=== PATIENT | female | born 1960 ===

== ENCOUNTER 2018-05-06 18:27 | Emergency (ER) | payer BC ==
--- NOTE | 2018-05-06 19:08 | UC ---
Skin Complaint HPI - HPI Summary HPI Summary: 57-year-old woman comes in with a chief complaint of rash on the left side of the face. This started 2 days ago. It itches and is mildly painful. There are some tingling on the left side of the lips. No fevers or chills no ear pain patient feels well otherwise. No known allergens. - History of Current Complaint Chief Complaint: UCSkin Time Seen by Provider: 05/06/18 18:55 Stated Complaint: RASH Hx Last Menstrual Period: n/a Pain Intensity: 0 - Allergy/Home Medications Allergies/Adverse Reactions: Allergies Allergy/AdvReac Type Severity Reaction Status Date / Time No Known Allergies Allergy Verified 05/06/18 18:51 Home Medications: Home Medications Fexofenadine (NF) [Yesenia 180 (NF)] 180 mg PO DAILY 05/06/18 [History Confirmed 05/06/18] Review of Systems Constitutional: Negative Skin: Rash Eyes: Negative ENT: Negative Respiratory: Negative Cardiovascular: Negative Gastrointestinal: Negative Motor: Negative Neurovascular: Negative Musculoskeletal: Negative Neurological: Negative Psychological: Negative Is Patient Immunocompromised?: No All Other Systems Reviewed And Are Negative: Yes PMH/Surg Hx/FS Hx/Imm Hx Previously Healthy: Yes - Surgical History Surgical History: Yes Surgery Procedure, Year, and Place: lumpectomy. right achilles repair. T&A - Family History Known Family History: Positive: Unknown - Social History Alcohol Use: Occasionally Substance Use Type: None Smoking Status (MU): Never Smoked Tobacco Physical Exam Triage Information Reviewed: Yes Appearance: Well-Appearing, No Pain Distress, Well-Nourished Vital Signs: Initial Vital Signs Temp 97.4 F 05/06/18 18:49 Pulse 94 05/06/18 18:49 Resp 16 05/06/18 18:49 BP 160/100 05/06/18 18:49 Pulse Ox 98 05/06/18 18:49 Vital Signs Reviewed: Yes Eye Exam: Normal Eyes: Positive: Conjunctiva Clear ENT: Positive: TMs normal Neck exam: Normal Neck: Positive: Supple Respiratory Exam: Normal Respiratory: Positive: Lungs clear, Normal breath sounds, No respiratory distress Cardiovascular: Positive: RRR Musculoskeletal Exam: Normal Musculoskeletal: Positive: Strength Intact, ROM Intact Neurological Exam: Normal Neurological: Positive: Alert, Muscle Tone Normal Psychological Exam: Normal Psychological: Positive: Age Appropriate Behavior Skin: Positive: Other - On the left cheek there is a 4 cm erythematous patch. No vesicles seen. Course/Dx - Course Course Of Treatment: The rash in the rash is in the distribution of the left parotid gland. Because of this will treat for parotitis with Augmentin. Due to the rash with the tingling into the left it appears that there are and nerve involvement which could mean early shingles. We will treat with valacyclovir for that. The plan is to follow-up with her primary care doctor get reevaluated sooner if worse or any questions or concerns. - Diagnoses Provider Diagnoses: LEFT FACE RASH Discharge - Sign-Out/Discharge Documenting (check all that apply): Patient Departure All imaging exams completed and their final reports reviewed: No Studies - Discharge Plan Condition: Stable Disposition: HOME Prescriptions: Amoxicillin/Clavulanate TAB* [Augmentin TAB 875*] 875 mg PO BID #20 tab Valacyclovir HCl [Valacyclovir] 1 gm PO TID #21 tab Patient Education Materials: Acute Rash (ED), Shingles (ED), Sialoadenitis (ED) Referrals: Eleuterio Portillo MD [Primary Care Provider] - Additional Instructions: FOLLOW UP WITH YOUR DOCTOR. GET RECHECKED FOR ANY WORSENING OF YOUR CONDITION OR QUESTIONS OR CONCERNS. - Billing Disposition and Condition Condition: STABLE Disposition: Home
== END 2018-05-06 19:48 | disposition home or self-care (01) ==
LOC: UCCORT 18:27
DX: R21 Rash and other nonspecific skin eruption (principal)
CPT/HCPCS: 99202; G0463